=== PATIENT | male | born 1960 | race Caucasian/White ===

== ENCOUNTER 2019-12-17 12:00 | Emergency (ER) | payer BC ==
--- NOTE | 2019-12-17 13:23 | EDM.PDOC ---
ED HPI GENERAL MEDICAL PROBLEM - General Chief Complaint: General Stated Complaint: SWOLLEN FACE Time Seen by Provider: 12/17/19 12:59 Source of Information: Reports: Patient History Limitations: Reports: No Limitations - History of Present Illness INITIAL COMMENTS - FREE TEXT/NARRATIVE: Mr. Pena is a very pleasant 59-year-old gentleman with a past medical history significant for CLL diagnosed in 2016, status post chemotherapy, currently under observation, who now presents to the ED with left facial swelling. He states that he has had recurrent lesions to the lateral aspect of his left nostril as well as lateral to the left corner of his mouth since February 2019. He states that about 1 month ago he had a lesion on his nose, associated with facial swelling. He was treated with an oral antibiotic, and it resolved after about 5 to 7 days. He then developed a lesion to the lateral aspect of the left side of his mouth about 2 weeks ago. He was treated with Bactrim for about 1 week, finishing this past 12/15/2019. The lesion nearly, but not completely, resolved. On 12/16/2019, the patient then developed a lesion to the lateral aspect of his left nostril. He applied mupirocin ointment to both the nasal lesion, as well as the para-oral lesion. The patient states that he then woke up this morning with substantial left facial swelling that developed overnight. He denies having any pain to his face, but states that his face is pruritic. No recent fever. He denies having any dental pain, and states that he was at a dentist not too long ago, had x- rays, and they found no abnormalities. Here in the ED, the patient is found to be hemodynamically stable, afebrile, saturating 100% on room air. Prior to about 1 month ago, the patient denies having a recent fever, chills, sore throat, ear pain, nasal or sinus congestion, cough, dyspnea, chest pain, palpitations, nausea, vomiting, constipation, diarrhea, abdominal pain, urinary symptoms, recent weight gain or weight loss, recent bloody bowel movements or black bowel movements, recent joint aches, headaches, or rashes. The patient's PCP is Dr. Shaheed Reyes, in [place]. His Oncologist is Dr. Amaris Paul, at [facility]. His ENT is Dr. Rene Ashton. Left Face/Facial Pain Score (Numeric/FACES): 2 - Related Data Allergies Allergy/AdvReac Type Severity Reaction Status Date / Time No Known Allergies Allergy Verified 12/17/19 12:11 Home Meds: Home Meds Acetaminophen [Tylenol] 325 mg PO ASDIRECTED 12/17/19 [History] Mupirocin Oint [Bactroban Oint] 1 applic TOP TID 12/17/19 [History] Sulfamethoxazole/Trimethoprim [Sulfamethoxazole-Tmp Ds Tablet] 1 tab PO BID 12/17/19 [History] Past Medical History Oncologic (Cancer) History: Reports: Leukemia (CLL, dx'd 2016, s/p CTx) - Past Surgical History HEENT Surgical History: Reports: Tonsillectomy Oncologic Surgical History: Reports: Other (See Below) (Right neck lymph node biopsy 2015) Social & Family History - Tobacco Use Tobacco Use Status *Q: Current Every Day Tobacco User Years of Tobacco use: 42 Packs/Tins Daily: 0.5 Packs/Tins Daily Comment: Down from 1 ppd - Caffeine Use Caffeine Use: Reports: None - Alcohol Use Alcohol Use History: Yes Alcohol Use Frequency: Socially - Recreational Drug Use Recreational Drug Use: No - Living Situation & Occupation Living situation: Reports: , with Spouse Occupation: Employed (mineral ore processing labourer) ED ROS GENERAL - Review of Systems Review Of Systems: Comprehensive ROS is negative, except as noted in HPI. ED EXAM, GENERAL - Physical Exam Exam: See Below Exam Limited By: No Limitations General Appearance: Alert, WD/WN, No Apparent Distress Eye Exam: Bilateral Eye: EOMI, Normal Inspection Ears: Normal External Exam, Hearing Grossly Normal Nose: Other (Swelling and erythema to the nose, more on the left than the right, causing rightward deviation of the nose) Throat/Mouth: Normal Lips, Normal Teeth, Normal Gums, Normal Oropharynx, Normal Voice, No Airway Compromise, Other (Small area of desquamation just lateral to the left corner of the patient's mouth) Head: Atraumatic, Facial Swelling (considerable, to the left side of the face, extending up to the lower eyelid, and down to the mandible, with associated erythema and calor. The swelling is indurated to palpation, with no palpable fluctuance.) Neck: Normal Inspection, Supple, Non-Tender, Full Range of Motion Course - Vital Signs Last Recorded V/S: Last Vital Signs Temp 37.4 C 12/17/19 12:19 Pulse 100 12/17/19 12:19 Resp 20 12/17/19 12:19 BP 133/88 12/17/19 12:19 Pulse Ox 100 12/17/19 12:19 - Orders/Labs/Meds Orders: Active Orders 24 hr Category Date Time Status Max Facial Sinus w Cont [CT] Stat Exams 12/17/19 13:16 Taken Sodium Chloride 0.9% [Saline Flush] Med 12/17/19 14:06 Active 10 ml FLUSH ONETIME PRN Medication Orders Sodium Chloride (Saline Flush) 10 ml FLUSH ONETIME PRN PRN Reason: Keep Vein Open Last Admin: 12/17/19 14:07 Dose: 10 ml Documented by: CORAL Labs: Laboratory Tests 12/17/19 12/17/19 12/17/19 Range/Units 13:30 13:30 15:50 WBC 7.13 (4.23-9.07) K/mm3 RBC 5.13 (4.63-6.08) M/mm3 Hgb 16.7 (13.7-17.5) gm/dl Hct 48.9 (40.1-51.0) % MCV 95.3 H (79.0-92.2) fl MCH 32.6 H (25.7-32.2) pg MCHC 34.2 (32.2-35.5) g/dl RDW Std Deviation 48.2 H (35.1-43.9) fL Plt Count 296 (163-337) K/mm3 MPV 8.2 L (9.4-12.3) fl Neutrophils % (Manual) 57 (40-60) % Band Neutrophils % 0 (0-10) % Lymphocytes % (Manual) 24 (20-40) % Atypical Lymphs % 0 % Monocytes % (Manual) 16 H (2-10) % Eosinophils % (Manual) 3 (0.8-7.0) % Basophils % (Manual) 0 L (0.2-1.2) Platelet Estimate Adequate RBC Morph Comment Normal Sodium 137 (136-145) mEq/L Potassium 3.9 (3.5-5.1) mEq/L Chloride 102 (98-107) mEq/L Carbon Dioxide 24 (21-32) mEq/L Anion Gap 14.9 (5-15) BUN 9 (7-18) mg/dL Creatinine 0.9 (0.7-1.3) mg/dL Est Cr Clr Drug Dosing 84.00 mL/min Estimated GFR (MDRD) > 60 (>60) mL/min BUN/Creatinine Ratio 10.0 L (14-18) Glucose 91 (74-106) mg/dL Calcium 9.1 (8.5-10.1) mg/dL Magnesium 1.9 (1.8-2.4) mg/dl Total Bilirubin 0.5 (0.2-1.0) mg/dL AST 13 L (15-37) U/L ALT 18 (16-63) U/L Alkaline Phosphatase 88 (46-116) U/L Total Protein 7.2 (6.4-8.2) g/dl Albumin 3.6 (3.4-5.0) g/dl Globulin 3.6 gm/dL Albumin/Globulin Ratio 1.0 (1-2) SARS-CoV-2 RNA (SARIAH) Negative (NEGATIVE) MRSA (PCR) 12/17/19 Range/Units 16:09 WBC (4.23-9.07) K/mm3 RBC (4.63-6.08) M/mm3 Hgb (13.7-17.5) gm/dl Hct (40.1-51.0) % MCV (79.0-92.2) fl MCH (25.7-32.2) pg MCHC (32.2-35.5) g/dl RDW Std Deviation (35.1-43.9) fL Plt Count (163-337) K/mm3 MPV (9.4-12.3) fl Neutrophils % (Manual) (40-60) % Band Neutrophils % (0-10) % Lymphocytes % (Manual) (20-40) % Atypical Lymphs % % Monocytes % (Manual) (2-10) % Eosinophils % (Manual) (0.8-7.0) % Basophils % (Manual) (0.2-1.2) Platelet Estimate RBC Morph Comment Sodium (136-145) mEq/L Potassium (3.5-5.1) mEq/L Chloride (98-107) mEq/L Carbon Dioxide (21-32) mEq/L Anion Gap (5-15) BUN (7-18) mg/dL Creatinine (0.7-1.3) mg/dL Est Cr Clr Drug Dosing mL/min Estimated GFR (MDRD) (>60) mL/min BUN/Creatinine Ratio (14-18) Glucose (74-106) mg/dL Calcium (8.5-10.1) mg/dL Magnesium (1.8-2.4) mg/dl Total Bilirubin (0.2-1.0) mg/dL AST (15-37) U/L ALT (16-63) U/L Alkaline Phosphatase (46-116) U/L Total Protein (6.4-8.2) g/dl Albumin (3.4-5.0) g/dl Globulin gm/dL Albumin/Globulin Ratio (1-2) SARS-CoV-2 RNA (SARIAH) (NEGATIVE) MRSA (PCR) Negative Meds: Medications Generic Name Dose Route Start Last Admin Trade Name Freq PRN Reason Stop Dose Admin Sodium Chloride 10 ml 12/17/19 14:06 12/17/19 14:07 Saline Flush FLUSH 10 ml ONETIME PRN Administration Keep Vein Open Discontinued Medications Generic Name Dose Route Start Last Admin Trade Name Freq PRN Reason Stop Dose Admin Sodium Chloride 1,000 mls @ 100 mls/hr 12/17/19 13:30 12/17/19 13:35 Normal Saline IV 100 mls/hr ASDIRECTED EDGARDO Administration Vancomycin HCl 1 gm/ Sodium 250 mls @ 250 mls/hr 12/17/19 15:57 12/17/19 16:06 Chloride IV 12/17/19 16:56 250 mls/hr ONETIME STA Administration Iopamidol 80 ml 12/17/19 14:06 12/17/19 14:07 Isovue-300 (61%) IVPUSH 12/17/19 14:07 80 ml ONETIME ONE Administration - Re-Assessments/Exams Free Text/Narrative Re-Assessment/Exam: 12/17/19 13:17 As above, the patient has had recurrent lesions to the left side of his nostril into the left corner of his mouth since February, was recently treated with a course of Bactrim for a left mouth lesion that began 1 or 2 weeks ago, finishing the antibiotic this past Wednesday. He applied topical mupirocin ointment to the left corner of his mouth last night, then woke up this morning with significant left facial swelling. It is not so much painful as it is pruritic. No recent fever. On examination, the swelling is indurated, with no palpable fluctuance. I have ordered blood work and a CT of the face with IV contrast, along with IV fluid, to evaluate. 12/17/19 14:39 The patient's CBC is unremarkable. His CMP is unremarkable. His magnesium level is within normal limits at 1.9. CT maxillofacial with IV contrast is read by [facility] as: Extensive left-sided facial swelling. Cellulitis is not excluded. Extensive lymphadenopathy as above. No abscess. The body of the report reads: Lymph nodes: Extensive bilateral submandibular lymphadenopathy measuring up to 2.2 cm in short axis. Extensive bilateral posterior triangle lymphadenopathy measuring up to 1.5 cm in short axis. Extensive left jugular chain lymphadenopathy measuring up to 1.9 cm in short axis. Extensive bilateral supraclavicular lymphadenopathy measuring up to 1.1 cm in short axis. 12/17/19 15:52 Case discussed with Kasey at [facility] at 15:26. Case then discussed with Dr. Karl Steve, Oncologist on-call at [facility], at 15:31. He was able to review a prior CT scan from November 2018, which also demonstrated lymphadenopathy. He feels that the patient probably has SLL (small lymphocytic lymphoma), not CLL. He recommended treatment for cellulitis with IV antibiotics, which will require transfer to their facility, since we have no beds available here. I have ordered a swab for the SARS-CoV-2 virus, and will call the Hospitalist back once I have the result. In the meantime, I have ordered an MRSA by PCR and will start the patient on IV vancomycin. 12/17/19 16:[address] images to [facility]. 12/17/19 17:27 The patient's swab for the SARS-CoV-2 virus has returned negative. 12/17/19 17:58 The patient's MRSA by PCR test returned negative. 12/17/19 20:23 Called back by Jey at [facility] at 20:13. Case then discussed with Dr. Estrada, Hospitalist automation software engineer at 20:15. She accepted the patient for admission to their hospital. The patient will be transported by ground ambulance. Departure - Departure Time of Disposition: 20:25 Disposition: DC/Tfer to Acute Hospital 02 Condition: Good Clinical Impression: Diffuse cellulitis of face - Discharge Information *PRESCRIPTION DRUG MONITORING PROGRAM REVIEWED*: Not Applicable *COPY OF PRESCRIPTION DRUG MONITORING REPORT IN PATIENT MIMA: Not Applicable Referrals: Amaris Paul NP [Ordering Only Provider] - Rene Ashton MD [Ordering Only Provider] - Forms: ED Department Discharge Sepsis Event Note (ED) - Evaluation Sepsis Screening Result: No Definite Risk - Focused Exam Vital Signs: Vital Signs Temp Pulse Resp BP Pulse Ox 12/17/19 12:19 37.4 C 100 20 133/88 100 - My Orders Last 24 Hours: My Active Orders 12/17/19 13:16 Max Facial Sinus w Cont [CT] Stat 12/17/19 14:06 Sodium Chloride 0.9% [Saline Flush] 10 ml FLUSH ONETIME PRN - Assessment/Plan Last 24 Hours: My Active Orders 12/17/19 13:16 Max Facial Sinus w Cont [CT] Stat 12/17/19 14:06 Sodium Chloride 0.9% [Saline Flush] 10 ml FLUSH ONETIME PRN
[2019-12-17] MEDS ORDERED: Sodium Chloride 0.9% 1,000 ML IV SCH (13:30)
[2019-12-17] MEDS ORDERED: Sodium Chloride 0.9% 10 ML Syringe FLUSH PRN (14:06)
[2019-12-17] MEDS ORDERED: Iopamidol 612 MG/ML 100 ML Bottle IVPUSH ONE (14:06)
--- NOTE | 2019-12-18 09:49 | CT ---
PROCEDURE INFORMATION: Exam: CT Maxillofacial With Contrast Exam date and time: 12/17/2019 1:55 PM Age: 59 years old Clinical indication: Other: Facial swelling; Face pain; Patient HX: Facial pain and swelling TECHNIQUE: Imaging protocol: Computed tomography images of the face with intravenous contrast. Radiation optimization: All CT scans at this facility use at least one of these dose optimization techniques: automated exposure control; mA and/or kV adjustment per patient size (includes targeted exams where dose is matched to clinical indication); or iterative reconstruction. COMPARISON: No relevant prior studies available. FINDINGS: Orbital cavity: See "Soft tissues" finding. Bones/joints: Reversal of cervical lordosis. Paranasal sinuses: Retention cysts in the right maxillary sinus and left maxillary sinus. Soft tissues: Extensive left-sided facial swelling. Cellulitis is not excluded. Lymph nodes: Extensive bilateral submandibular lymphadenopathy measuring up to 2.2 cm in short axis. Extensive bilateral posterior triangle lymphadenopathy measuring up to 1.5 cm in short axis. Extensive left jugular chain lymphadenopathy measuring up to 1.9 cm in short axis. Extensive bilateral supraclavicular lymphadenopathy measuring up to 1.1 cm in short axis. IMPRESSION: Extensive left-sided facial swelling. Cellulitis is not excluded. Extensive lymphadenopathy as above. No abscess. Thank you for allowing us to participate in the care of your patient. ROMARIOAISSATOUJESENIA | Final Radiology Report CONFIDENTIALITY STATEMENT This report is intended only for use by the referring physician, and only in accordance with law. If you received this in error, call [phone]. Page 2 of 2 Dictated and Authenticated by: Pranav Olson MD 12/17/2019 3:32 PM Central Time ([place] & [place]) HEY[place]
== END 2019-12-17 22:10 ==
LOC: SUPCPDRO 12:00 → JD.ED 12:00
DX: L03.211 Cellulitis of face (principal); F17.210 Nicotine dependence, cigarettes, uncomplicated; Z90.49 Acquired absence of other specified parts of digestive tract; Z20.828 Contact with and (suspected) exposure to other viral communicable diseases
CPT/HCPCS: 36415; 70487; 80053; 83735; 85007; 85027; 87635; 87641; 96365; 99284; J3370; J7030; J7050; Q9967; U0002